=== PATIENT | male | born 1945 | race Caucasian/White ===

== ENCOUNTER 2021-08-14 00:21 | Emergency (ER) | payer MEDICARE, OTHER, SELFPAY ==
[2021-08-14 00:26] VITALS: BP 163/92; PULSE 86; RESP 19; TEMP 36.4; O2SAT 96; BMI 25.8
--- NOTE | 2021-08-14 00:46 | W.ED.EPISTAX ---
HPI - Epistaxis General: Chief complaint: Epistaxis Stated complaint: Nose Bleed Time Seen by Provider: 08/14/21 00:46 History of Present Illness: HPI Narrative: Patient is a 76-year-old male comes to the ED with a nosebleed. Patient says nosebleed started about 2-1/2 hours ago while he was in the shower. Patient says he was picking at his nose in the shower and then the bleeding started. Denies any injury or trauma to cause nosebleed. Patient is on a blood thinner. He is put pressure on his nose using his hand and has gotten the bleeding slowed down some but it has not completely stopped. He says that most of what he has been spitting up and has been draining out of his nose has been red blood just a few clots. Denies any other symptoms such as nausea/vomiting, chest pain, shortness of breath, abdominal pain, bladder or bowel symptoms. Associated symptoms: Deny fever(s), headache(s) or vomiting Review of Systems Const: Denies: fever(s), chills or fatigue Eyes: Denies: change in vision or eye discomfort ENMT: Reports: epistaxis; Denies: throat pain, odynophagia, nasal discharge or nasal congestion Card: Denies: chest pain, palpitations, edema, swelling of feet/ankles, dyspnea on exertion or orthopnea Resp: Denies: dyspnea, productive cough or non-productive cough GI: Denies: abdominal pain, nausea, vomiting, diarrhea, constipation or hematochezia : Denies: flank pain, difficulty urinating, dysuria or hematuria Musc: Denies: neck pain, back pain or extremity swelling Skin/Breast: Denies: rash or new lesions Neuro: Denies: headache(s), numbness in extremities or weakness in extremities PFS ED PFSH: Medical History ASHD (arteriosclerotic heart disease) Atrial fibrillation COPD (chronic obstructive pulmonary disease) Dyslipidemia HTN (hypertension) Myocardial infarction GUANAKO (obstructive sleep apnea) Surgical History S/P CABG (coronary artery bypass graft) Family History Mother Status cardiac pacemaker CAD (coronary artery disease) Father CAD (coronary artery disease) Grandfather CAD (coronary artery disease) PATERNAL Social History Smoking and tobacco status: former smoker Household members: spouse Marital status: Current occupational status: retired Physical Exam Const: COMMON NORMALS: no acute distress, patient oriented x3 and alert GENERAL APPEARANCE: cooperative and comfortable HENMT: COMMON NORMALS: normocephalic HEAD & SCALP: normocephalic NOSE: Normal septum present (No septal hematoma seen) and Epistaxis present on the right anterior source MOUTH: Normal oral and palatal mucosa present THROAT: posterior oropharynx normal and uvula midline OTHER: Some visible red blood seen dripping down the posterior oropharynx. Eye: COMMON NORMALS: Equal, round and reactive pupils present and conjunctivae normal CONJUNCTIVA: Yes conjunctivae normal PUPIL: Yes Equal, round and reactive pupils present Neck/C-Spine: COMMON NORMALS: supple GENERAL: Yes normal visual inspection Resp: COMMON NORMALS: normal respiratory effort, No retractions, No use of accessory muscles and clear to auscultation bilaterally AUSCULTATION: clear to auscultation bilaterally Cardio: COMMON NORMALS: regular rate, regular rhythm, S1 normal heart sound present, S2 normal heart sound present, No gallops present (Cardio), No clicks present (Cardio), No murmurs present (Cardio) and Peripheral pulses 2+ throughout RATE: regular rate RHYTHM: regular rhythm HEART SOUNDS: S1 normal heart sound present and S2 normal heart sound present PERIPHERAL PULSES: Peripheral pulses 2+ throughout GI: COMMON NORMALS: Normal to inspection, nondistended, normoactive bowel sounds present, Soft to palpation, non-tender and no masses PALPATION: Yes Soft to palpation : COMMON NORMALS: Yes no CVA tenderness BLADDER/KIDNEY EXAM: Yes no CVA tenderness Back/Pelvis: COMMON NORMALS: no CVA tenderness Extremity: COMMON NORMALS: normal to inspection Neuro: COMMON NORMALS: patient oriented x3 and moves all extremities SENSORIUM/ORIENTATION: Yes alert Skin: GENERAL SKIN EXAM: dry skin Course Reevaluation(s): Reevaluation #1: Nurse applied Afrin nasal spray in nose and then clamped for approximately 15 minutes. I then came in and checked to see if patient is having any bleeding. No visible bleeding in the posterior oropharynx and no active bleeding in the left or right nare seen. Patient feels like the bleeding has stopped. Time: 01:34 Reevaluation #2: I rechecked patient to see if he has any reoccurring bleeding and there is no active nasal bleeding or blood dripping down posterior oropharynx. Patient feels like the bleeding is stopped. I explained discharge instructions and how to treat any further nosebleeds. Time: 01:55 Vital Signs: Vital signs: Vital Signs Temperature 97.6 F 08/14/21 00:26 Pulse Rate 79 08/14/21 02:16 Respiratory Rate 18 08/14/21 02:16 Blood Pressure 139/85 08/14/21 02:16 Pulse Oximetry 98 08/14/21 02:16 MDM - Epistaxis MDM Narrative: Medical decision making narrative: Patient is a 76-year-old male comes to the ED with epistaxis. Patient is on a blood thinner. Denies any trauma or injury to cause nosebleed. Patient says he was in the shower picking at his nose when bleeding started. Exam showed an anterior source in the right nare. No septal hematoma noted. Some bleeding on the posterior oropharynx noted. Afrin was then sprayed him patient's nose and then clamp was applied for another 12 minutes. Bleeding stopped. Patient was on watch for another 30 minutes and had no recurring bleeding. Patient was discharged home and given instructions on how to treat any reoccurring nosebleeds. Return to ED precautions given. Follow-up with PCP in 7 days for reevaluation. Patient understood and agreed with plan. Discharge Plan Discharge Patient Disposition: Home Clinical Impression: Anterior epistaxis Condition: Stable Prescriptions: No Action tramadol 50 mg tablet 50 mg PO DAILY RF: 0 folic acid 1 mg tablet 1 mg PO DAILY RF: 0 pantoprazole 20 mg tablet,delayed release (DR/EC) 20 mg PO DAILY RF: 0 aspirin [Aspir-81] 81 mg tablet,delayed release (DR/EC) 81 mg PO DAILY RF: 0 trazodone 50 mg tablet 25 mg PO DAILY RF: 0 lisinopril 2.5 mg tablet 2.5 mg PO DAILY Qty: 90 RF: 3 rosuvastatin 40 mg tablet 40 mg PO DAILY Qty: 90 RF: 3 carvedilol 3.125 mg tablet See Rx Instructions .ROUTE .COMPLEX Qty: 180 RF: 3 clopidogrel 75 mg tablet 75 mg PO DAILY Qty: 90 RF: 3 Discharge Orders: Discharge ED (Routine); Ordered 08/14/21 Ordered By: Keaton Fallon Referrals: Phil Hernandez, DO [Primary Care Provider] - Discharge Diet: Regular Discharge Activity: Increase activity as tolerated Patient Instructions: Epistaxis (ED) Activity Restrictions/Additional Instructions: Follow-up with medical provider as directed in 7 days for reevaluation. Use Afrin nasal spray and clamp nose for approximately 15 minutes for any reoccurring nosebleeds. If you are unable to control nosebleed return to the ED for evaluation.. Return to the ER or your medical provider if condition worsens. Please read and understand discharge instructions. Thank you for choosing [facility] for your healthcare needs today. Please realize this is an emergency room and that we are providing you with a medical screening exam and this may not be complete and all inclusive of all the testing and or work up that you may need to determine your ailment or severity of your illness. It is very important that you follow up as instructed or that you return to the Emergency Department should you have concerns or if your condition changes or worsens in any way. Coding Level of Care Code ED Machine Riveter for [place] Exam Comprehensive
[2021-08-14 00:51] VITALS: BP 141/89; PULSE 84; RESP 19; O2SAT 95
[2021-08-14] MEDS: oxymetazoline 0.05% Nasal Spray 15 mL 2 SPRAY NOSTRIL-B (01:14)
[2021-08-14 02:16] VITALS: BP 139/85; PULSE 79; RESP 18; O2SAT 98
== END 2021-08-14 02:10 | disposition home or self-care (01) ==
PROVIDERS: Emergency Provider Physician Assistant; PCP Family Medicine
DX: R04.0 Epistaxis (principal); Z79.82 Long term (current) use of aspirin; Z79.02 Long term (current) use of antithrombotics/antiplatelets; J44.9 Chronic obstructive pulmonary disease, unspecified; E78.5 Hyperlipidemia, unspecified; I10 Essential (primary) hypertension; I25.2 Old myocardial infarction; Z87.891 Personal history of nicotine dependence; Z95.1 Presence of aortocoronary bypass graft
CPT/HCPCS: 99282

== ENCOUNTER 2021-12-03 09:10 | Outpatient (CLI) | payer MEDICARE, OTHER, SELFPAY ==
--- NOTE | 2021-12-03 09:24 | XRR_ITS ---
PROCEDURE INFORMATION: Exam: XR Left Shoulder Exam date and time: 12/03/2021 9:24 AM Age: 76 years old Clinical indication: Pain and condition or disease; Arthritis; Type not specified; Shoulder; Left; Additional info: Arthritis/l shoulder pain TECHNIQUE: Imaging protocol: XR Left shoulder. Views: 2 or more views. COMPARISON: No relevant prior studies available. FINDINGS: Bones/joints: Osseous structures are intact. Joint spaces are preserved. Soft tissues: Normal. XR/XR shoulder LT min 2V* [id number] IMPRESSION: Unremarkable radiographs of the left shoulder.
== END 2021-12-03 09:11 | disposition home or self-care (01) ==
LOC: RAD 09:21
PROVIDERS: PCP Family Medicine; Visit Provider Family Medicine
DX: M19.90 Unspecified osteoarthritis, unspecified site (principal); M25.512 Pain in left shoulder
CPT/HCPCS: 73030

== ENCOUNTER 2022-02-13 15:57 | Observation (INO) | payer MEDICARE, OTHER, SELFPAY ==
[2022-02-13] VITALS (8 sets, daily range): BP systolic 107–140; BP diastolic 67–95; PULSE 54–143; RESP 12–20; TEMP 36.7; O2SAT 92–95; BMI 23.0; BMI 23.1
--- NOTE | 2022-02-13 16:27 | ED_ITS ---
Documented by User: Jose Ross 02/13/22 18:00 HPI - Chest Pain General: Chief Complaint: Chest Pain Stated Complaint: chest pain Time Seen by Provider: 02/13/22 16:22 History of Present Illness: 76-year-old male presents to emergency department chief complaint palpitations with elevated heart rate and chest tightness that started within the past 2 hours. Patient reports having a known history of this in the past including atrial fibrillation open heart bypass with cardiac stenting about 25 years ago in which he is required medications for. Patient reports no recent infections or illnesses besides a mild respiratory issue reports no bronchitis or pneumonia. Patient is on Plavix. Patient does not recall any recent medication changes or any other associated symptoms. Associated symptoms: Reports palpitations; Deny abdominal pain, dyspnea, fever(s), nausea or vomiting Review of Systems General: Reports: 10 or more systems reviewed and unremarkable except in HPI and below Const: Denies: fever(s), chills, fatigue or malaise Eyes: Denies: change in vision or blurry vision Card: Reports: chest pain and palpitations Resp: Denies: dyspnea or productive cough GI: Denies: abdominal pain, nausea or vomiting : Denies: flank pain Musc: Denies: extremity pain or extremity swelling Skin/Breast: Denies: rash or pruritus Neuro: Denies: headache(s) Psych: Denies: anxiety or depression Dev/Lymph: Denies: easy bleeding All/Imm: Denies: urticaria, throat swelling or facial swelling PFS ED PFSH: Medical History (Updated 02/13/22 @ 20:01 by Derik Adhikari MD) ASHD (arteriosclerotic heart disease) Atrial fibrillation COPD (chronic obstructive pulmonary disease) DJD (degenerative joint disease), lumbar Dyslipidemia HTN (hypertension) Myocardial infarction GUANAKO (obstructive sleep apnea) Surgical History (Updated 02/13/22 @ 20:01 by Derik Adhikari MD) H/O hernia repair S/P CABG (coronary artery bypass graft) Family History Mother Status cardiac pacemaker CAD (coronary artery disease) Father CAD (coronary artery disease) Grandfather CAD (coronary artery disease) PATERNAL Social History (Updated 02/13/22 @ 20:02 by Derik Adhikari MD) Smoking and tobacco status: former smoker Alcohol intake: current Alcohol intake frequency: few times a week Substance/Drug Use: never Household members: spouse Marital status: Current occupational status: retired Physical Exam Const: COMMON NORMALS: no acute distress, patient oriented x3 and healthy appearing HENMT: COMMON NORMALS: normocephalic and atraumatic HEAD & SCALP: normocephalic and atraumatic Eye: COMMON NORMALS: Equal, round and reactive pupils present and EOMs intact bilaterally PUPIL: Yes Equal, round and reactive pupils present Neck/C-Spine: COMMON NORMALS: full ROM, supple and no JVD Lymph: LYMPHATIC: no lymphadenopathy noted Chest: COMMONS NORMALS: normal inspection of the chest and normal palpation of entire chest wall Resp: COMMON NORMALS: normal respiratory effort, No retractions and clear to auscultation bilaterally EFFORT & INSPECTION: Yes able to speak in complete sentences and Yes symmetric chest movement AUSCULTATION: clear to auscultation bilaterally Cardio: COMMON NORMALS: no JVD; negative for regular rate (Patient is was appear to be a tachycardic rhythm rate of 144 appears to be ) RATE: abnormal rate (Patient is was appear to be a tachycardic rhythm rate of 144 appears to be ) GI: COMMON NORMALS: Normal to inspection, nondistended, normoactive bowel sounds present, Soft to palpation and non-tender INSPECTION: Yes normal to inspection PALPATION: Yes Soft to palpation : COMMON NORMALS: Yes no CVA tenderness BLADDER/KIDNEY EXAM: Yes no CVA tenderness Back/Pelvis: COMMON NORMALS: no CVA tenderness Extremity: COMMON NORMALS: normal to inspection and full ROM Neuro: COMMON NORMALS: patient oriented x3, CN's II-XII intact bilaterally, moves all extremities and no focal motor deficits Psych: COMMON NORMALS: mental status grossly normal, Normal thought process present, cooperative and normal affect THOUGHT PROCESS: Normal thought process present Skin: COMMON NORMALS: no rashes or lesions noted GENERAL SKIN EXAM: no rashes or lesions noted Course Vital Signs: Vital signs: Vital Signs Temperature 97.8 F 02/14/22 07:09 Pulse Rate 67 02/14/22 07:09 Respiratory Rate 21 H 02/14/22 07:09 Blood Pressure 106/74 02/14/22 07:09 Pulse Oximetry 92 02/14/22 07:09 MDM - Chest Pain Medical Decision Making Due to the patient's symptoms and condition lab work and imaging will be obtained IV fluids provided Cardizem bolus followed by drip will be obtained if slow this. His rate down he does not appear to be a STEMI at this time but there is some ischemic changes noted to his EKG in comparison to prior which I believe is rate dependent we will continue to follow. Lab Data : 02/14/22 05:00 02/14/22 05:00 Radiology Impressions Chest X-Ray 02/13/22 16:30 IMPRESSION: No acute findings. Laboratory Results WBC 6.9 10^3/uL (4.0-10.0) 02/13/22 16:35 RBC 5.11 10^6/uL (4.1-5.3) 02/13/22 16:35 Hgb 16.2 g/dL (11.7-16.6) 02/13/22 16:35 Hct 46.6 % (42.0-52.0) 02/13/22 16:35 MCV 91.2 fl (80-94) 02/13/22 16:35 MCH 31.7 pg (28.0-34.0) 02/13/22 16:35 MCHC 34.8 g/dL (30.0-36.0) 02/13/22 16:35 RDW 13.2 % (12.1-15.1) 02/13/22 16:35 Plt Count 201 10^3/cmm (130-400) 02/13/22 16:35 MPV 10.6 fL (7.4-10.4) H 02/13/22 16:35 Neut % (Auto) 80.9 % 02/13/22 16:35 Lymph % (Auto) 12.3 % 02/13/22 16:35 [place] % (Auto) 4.8 % 02/13/22 16:35 Eos % (Auto) 1.3 % 02/13/22 16:35 Baso % (Auto) 0.6 % 02/13/22 16:35 Neut # (Auto) 5.54 10^3/uL (1.8-7.7) 02/13/22 16:35 Lymph # (Auto) 0.8 10^3/uL (0.8-4.8) 02/13/22 16:35 [place] # (Auto) 0.3 10^3/uL (0.2-0.9) 02/13/22 16:35 Eos # (Auto) 0.1 10^3/uL (0.0-0.8) 02/13/22 16:35 Baso # (Auto) 0.0 10^3/uL (0.0-0.1) 02/13/22 16:35 Nucleated RBC % (auto) 0 % 02/13/22 16:35 Nucleated RBCs # 0.0 /100WBC 02/13/22 16:35 PT 12.90 SECONDS (12.1-14.9) 02/13/22 16:35 INR 0.94 (0.8-1.2) 02/13/22 16:35 APTT 25.8 SECONDS (23.9-36.7) 02/13/22 16:35 Sodium 140 mmol/L (136-145) 02/13/22 16:35 Potassium 4.7 mmol/L (3.5-5.1) 02/13/22 16:35 Chloride 104 mmol/L (98-107) 02/13/22 16:35 Carbon Dioxide 24 mmol/L (22-29) 02/13/22 16:35 Anion Gap 16.7 (5-19) 02/13/22 16:35 BUN 15 mg/dL (8-23) 02/13/22 16:35 Creatinine 0.7 mg/dL (0.7-1.2) 02/13/22 16:35 GFR Calculation Not Reportable 02/13/22 16:35 Glucose 124 mg/dL (65-115) H 02/13/22 16:35 Calculated Osmolality 292 mOsm/kg (285-295) 02/13/22 16:35 Calcium 9.5 mg/dL (8.5-10.5) 02/13/22 16:35 Magnesium 2.0 mg/dL (1.7-2.3) 02/13/22 16:35 Total Bilirubin 0.4 mg/dL (0.15-1.2) 02/13/22 16:35 AST 32 U/L (0-40) 02/13/22 16:35 ALT 40 U/L (0-41) 02/13/22 16:35 Alkaline Phosphatase 84 IU/L (40-130) 02/13/22 16:35 Troponin T Baseline 12 ng/L (0-15) 02/13/22 16:35 Troponin T 120 Minute 19.97 ng/L (0-15) H 02/13/22 18:25 Delta Troponin T 7.97 ABS# (0-10) 02/13/22 18:25 NT-Pro-B Natriuret Pep 176 pg/mL (0-450) 02/13/22 16:35 Total Protein 7.2 g/dL (6.6-8.7) 02/13/22 16:35 Albumin 4.6 g/dL (3.5-5.2) 02/13/22 16:35 Globulin 2.6 g/dL (1.3-4.6) 02/13/22 16:35 Lipase 41 U/L (13-60) 02/13/22 16:35 TSH 1.74 uIU/mL (0.27-4.20) 02/13/22 16:35 Urine Color Yellow (Yellow) 02/13/22 18:23 Urine Appearance Clear (CLEAR) 02/13/22 18:23 Urine pH 5 (5-7) 02/13/22 18:23 Ur Specific [place] 1.007 (1.005-1.030) 02/13/22 18:23 Urine Protein Neg (Negative) 02/13/22 18:23 Urine Glucose (UA) Norm (Normal) 02/13/22 18:23 Urine Ketones Negative (Negative) 02/13/22 18:23 Urine Blood Neg (Negative) 02/13/22 18:23 Urine Nitrate Negative (Negative) 02/13/22 18:23 Urine Bilirubin Neg (Negative) 02/13/22 18:23 Urine Urobilinogen Neg mg/dL (Negative) 02/13/22 18:23 Ur Leukocyte Esterase Negative (Negative) 02/13/22 18:23 Discharge Plan Discharge Patient Disposition: Admitted As Inpatient Admit Provider: Derik Adhikari Clinical Impression: Chest pain, Atrial fibrillation with rapid ventricular response Condition: Stable Discharge Diet: Cardiac Discharge Activity: Increase activity as tolerated Sign Out Sign Out Data: Patient Sign Out occurred on 02/13/22 at 18:14. Patient's care was discussed, and care was transferred from to Joel Denis MD. Post-Handoff Eval: Patient care handoff received from Dr. Ross pending completion of ED evaluation and admission. No obvious metabolic or hematologic abnormalities to explain recurrent atrial fibrillation. Delta troponin is elevated, in the absence of chest pain this may be due to demand ischemia. I discussed the results of ED evaluation with the patient. He did have improvement in her rate control with Cardizem bolus and drip. I discussed plan to admit the patient to the hospital for further treatment and management. Hospitalist service contacted and agreed with the patient. Patient admitted to the hospital without incident or clinical deterioration. Joel Denis MD Emergency Medicine Coding Level of Care Code ED Civil Project Engineer for Chg Fwd Exam Comprehensive
--- NOTE | 2022-02-13 16:30 | XRR_ITS ---
PROCEDURE INFORMATION: Exam: XR Chest Exam date and time: 02/13/2022 3:39 PM Age: 76 years old Clinical indication: Other: Palpitations TECHNIQUE: Imaging protocol: XR of the chest. Views: 1 view. COMPARISON: CR XR shoulder LT min 2V* [id number] 12/03/2021 9:28 AM FINDINGS: Lungs: No consolidation. Pleural spaces: No pleural effusion. No pneumothorax. Heart/Mediastinum: No cardiomegaly. Bones/joints: Sternotomy wires noted. Visualized osseous structures are intact. XR/XR chest 1V portable [id number] IMPRESSION: No acute findings.
--- NOTE | 2022-02-13 16:30 | ECG_ITS ---
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 Measurements Intervals [place] Rate: 144 P: 267 VT: 124 QRS: 254 QRSD: 148 T: 0 QT: 321 QTc: 498 Interpretive Statements JUNCTIONAL TACHYCARDIA, POSSIBLE ATRIAL FLUTTER RIGHT AXIS DEVIATION [QRS AXIS > 100] RIGHT BUNDLE BRANCH BLOCK [120+ ms QRS DURATION, UPRIGHT V1, 40+ ms S IN I/aVL/V4/V5/V6] INFERIOR MYOCARDIAL INFARCTION , PROBABLY RECENT [40+ ms Q WAVE AND/OR ST/T ABNORMALITY IN II/aVF] ANTEROLATERAL MYOCARDIAL INFARCTION , OF INDETERMINATE AGE [40+ ms Q WAVE IN I/aVL/V3-V6] ACUTE [place] No previous ECG available for comparison Electronically Signed On 02-13-2022 21:52:19 CDT by Juan Daniel Moreira M.D. [id number]
--- NOTE | 2022-02-13 16:36 | PC.NURSE ---
PT PLACED ON CONTINUOUS SPO2, NIBP, AND CM.
[2022-02-13] MEDS: sodium chloride 0.9% 500 ML 999 ML IV (16:39)
[2022-02-13 16:56] LABS: Basophils % 0.6 %; Eosinophils # 0.1 10^3/uL (0.0-0.8); Eosinophils % 1.3 %; Hematocrit 46.6 % (42.0-52.0); Hemoglobin 16.2 g/dL (11.7-16.6); INR 0.94 (0.8-1.2); Lymphocytes # 0.8 10^3/uL (0.8-4.8); Lymphocytes % 12.3 %; Mean Corpuscular HGB Conc 34.8 g/dL (30.0-36.0); Mean Corpuscular Hemoglobin 31.7 pg (28.0-34.0); Mean Corpuscular Volume 91.2 fl (80-94); Mean Platelet Volume 10.6 fL (7.4-10.4); Monocytes # 0.3 10^3/uL (0.2-0.9); Monocytes % 4.8 %; Neutrophils # 5.54 10^3/uL (1.8-7.7); Neutrophils % 80.9 %; Nucleated Red Blood Cells % 0 %; Platelet Count 201 10^3/cmm (130-400); Red Blood Count 5.11 10^6/uL (4.1-5.3); Red Cell Distribution Width 13.2 % (12.1-15.1); White Blood Count 6.9 10^3/uL (4.0-10.0)
[2022-02-13 16:57] LABS: Partial Thromboplastin Time 25.8 SECONDS (23.9-36.7)
[2022-02-13 17:15] LABS: Alanine Aminotransferase 40 U/L (0-41); Albumin Level 4.6 g/dL (3.5-5.2); Alkaline Phosphatase 84 IU/L (40-130); Anion Gap 16.7 (5-19); Aspartate Amino Transferase 32 U/L (0-40); Blood Urea Nitrogen 15 mg/dL (8-23); Calcium 9.5 mg/dL (8.5-10.5); Carbon Dioxide 24 mmol/L (22-29); Chloride 104 mmol/L (98-107); Globulin 2.6 g/dL (1.3-4.6); Glucose 124 mg/dL (65-115); Lipase 41 U/L (13-60); Osmolality Calculated 292 mOsm/kg (285-295); Potassium 4.7 mmol/L (3.5-5.1); Sodium 140 mmol/L (136-145); Total Bilirubin 0.4 mg/dL (0.15-1.2); Total Protein 7.2 g/dL (6.6-8.7)
[2022-02-13 17:18] LABS: Troponin(5th) Baseline 12 ng/L (0-15)
--- NOTE | 2022-02-13 18:30 | ECG_ITS ---
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 Measurements Intervals [place] Rate: 76 P: [place]: QRS: 243 QRSD: 134 T: 35 QT: 401 QTc: 452 Interpretive Statements ATRIAL FIBRILLATION WITH ABERRANT CONDUCTION OR VENTRICULAR PREMATURE COMPLEXES RIGHT AXIS DEVIATION [QRS AXIS > 100] RIGHT BUNDLE BRANCH BLOCK [120+ ms QRS DURATION, UPRIGHT V1, 40+ ms S IN I/aVL/V4/V5/V6] INFERIOR MYOCARDIAL INFARCTION , PROBABLY OLD [40+ ms Q WAVE AND/OR ST/T ABNORMALITY IN II/aVF] ANTEROLATERAL MYOCARDIAL INFARCTION , PROBABLY OLD [40+ ms Q WAVE IN I/aVL/V3-V6] Compared to ECG 02/13/2022 16:11:57 Ventricular premature complex(es) now present Aberrant conduction of supraventricular beat(s) now present Myocardial infarct finding still present Electronically Signed On 02-13-2022 22:09:47 CDT by Juan Daniel Moreira M.D. [id number]
[2022-02-13 18:35] LABS: Add Urine Microscopic? NO; Charge for UA Resulting for Rev
[2022-02-13 18:41] LABS: NT Pro B Type Natriuretic Pept 176 pg/mL (0-450)
[2022-02-13 18:59] LABS: Troponin 5 2HR 19.97 ng/L (0-15)
[2022-02-13 19:02] LABS: Troponin 5 2HR Delta 7.97 ABS# (0-10)
--- NOTE | 2022-02-13 19:03 | PC.NURSE ---
report given to catherine rn assumed care.
[2022-02-13 19:06] LABS: Bilirubin Urine Neg (Negative); Blood Urine Neg (Negative); Glucose Urine UA Norm (Normal); Ketones Urine Negative (Negative); Leukocyte Esterase Urine Negative (Negative); Nitrate Urine Negative (Negative); Protein Urine Neg (Negative); Specific Gravity, Urine 1.007 (1.005-1.030); Urine Appearance Clear (CLEAR); Urine Color Yellow (Yellow); Urobilinogen Urine Neg (Negative); pH Urine 5 (5-7)
--- NOTE | 2022-02-13 19:23 | PC.NURSE ---
cardizem running at 10ml/hr at shift change, MAR updated to reflect this rate.
--- NOTE | 2022-02-13 19:53 | PM.HP ---
Providers/Chief Complaint Admitting Physician: Derik Adhikari Primary Care Provider: Phil Hernandez DO Chief Complaint: chest pain History of Present Illness Pleasant 76-year-old gentleman with history of CAD, CABG, PCI and stenting, as well as history of atrial fibrillation presented due to chest pressure and palpitations experienced this afternoon after earlier doing some work in the yard, and then walking to the mailbox. His reports he felt hot at the time. In ER he is noted to be in atrial fibrillation with RVR with heart rates up into 140s. He received Cardizem push, and then was started on Cardizem drip due to persistent A. fib with RVR. He is afebrile, without leukocytosis, although does state he and his had been recovering from cold-like symptoms a week previously with sneezing, nasal congestion, with some postnasal drip and cough. Chest x-ray in ER without acute findings. UA unremarkable. Potassium and renal function are WNL. Baseline troponin is 12, 2-hour troponin 19.9 7. EKG with right bundle branch block. Apart from these events he states he otherwise has been in good health. Review of Systems Const: Denies: fever(s), chills, body aches or malaise Eyes: Denies: change in vision or eye redness ENMT: Reports: nasal discharge and nasal congestion; Denies: throat pain, oral sores or ear or mastoid pain Card: Reports: chest pain and palpitations; Denies: edema, pre-syncope or dyspnea on exertion Resp: Denies: dyspnea, productive cough, change in phlegm color or hemoptysis GI: Denies: abdominal pain, nausea, vomiting, diarrhea, constipation, hematochezia or melena : Denies: flank pain, difficulty urinating, urinary frequency or hematuria Musc: Denies: back pain, joint swelling or joint redness Skin/Breast: Denies: rash, sores or new lesions Neuro: Denies: headache(s), numbness in extremities, weakness in extremities, dizziness, confusion or seizure-like activity Endo: Denies: polyuria or polydipsia Dev/Lymph: Denies: easy bleeding or purpura All/Imm: Denies: urticaria, throat swelling or tongue swelling Medications/Allergies Home Medications Medication Instructions Recorded Confirmed Last Taken Type aspirin 81 mg tablet,delayed 81 mg PO DAILY 03/26/20 07/13/20 Unknown History release (Aspir-) folic acid 1 mg tablet 1 mg PO DAILY 03/26/20 07/13/20 Unknown History pantoprazole 20 mg tablet,delayed 20 mg PO DAILY 03/26/20 07/13/20 Unknown History release trazodone 50 mg tablet 25 mg PO DAILY 03/26/20 07/13/20 Unknown History lisinopril 2.5 mg tablet 2.5 mg PO DAILY #90 tab 07/10/20 07/13/20 Unknown Rx rosuvastatin 40 mg tablet 40 mg PO DAILY #90 tab 07/13/20 Unknown Rx tramadol 50 mg tablet 50 mg PO DAILY 07/13/20 07/13/20 Unknown History carvedilol 3.125 mg tablet See Rx Instructions .ROUTE 10/23/20 Unknown Rx .COMPLEX #180 tab clopidogrel 75 mg tablet 75 mg PO DAILY #90 tab 11/28/20 Unknown Rx Allergies Allergy/AdvReac Type Severity Reaction Status Date / Time No Known Allergies Allergy Verified 03/26/20 15:12 PFSH Acute PFSH: Medical History (Updated 02/13/22 @ 20:01 by Derik Adhikari MD) ASHD (arteriosclerotic heart disease) Atrial fibrillation COPD (chronic obstructive pulmonary disease) DJD (degenerative joint disease), lumbar Dyslipidemia HTN (hypertension) Myocardial infarction GUANAKO (obstructive sleep apnea) Surgical History (Updated 02/13/22 @ 20:01 by Derik Adhikari MD) H/O hernia repair S/P CABG (coronary artery bypass graft) Family History Mother Status cardiac pacemaker CAD (coronary artery disease) Father CAD (coronary artery disease) Grandfather CAD (coronary artery disease) PATERNAL Social History (Updated 02/13/22 @ 20:02 by Derik Adhikari MD) Smoking and tobacco status: former smoker Alcohol intake: current Alcohol intake frequency: few times a week Substance/Drug Use: never Household members: spouse Marital status: Current occupational status: retired Vitals/I&O/Wt Last Vital Signs Temp 98.0 F 02/13/22 16:12 Pulse 113 H 03/17/22 19:38 Resp 15 02/13/22 19:38 BP 114/67 02/13/22 19:38 Pulse Ox 94 02/13/22 19:38 02/13/22 02/13/22 02/13/22 06:59 14:59 22:59 Intake Total 12.016 / 12.016 Balance 12.016 / 12.016 Weight last 48 hrs Weight 77.111 kg Physical Exam Narrative: at bedside Const: COMMON NORMALS: no acute distress and patient oriented x3 OTHER: [place] HENMT: COMMON NORMALS: oropharynx normal Neck/C-Spine: COMMON NORMALS: no JVD Resp: COMMON NORMALS: normal respiratory effort and clear to auscultation bilaterally AUSCULTATION: clear to auscultation bilaterally Cardio: COMMON NORMALS: no JVD, S1 normal heart sound present, S2 normal heart sound present and No murmurs present (Cardio) RATE: tachycardic RHYTHM: abnormal rhythm irregularly irregular HEART SOUNDS: S1 normal heart sound present and S2 normal heart sound present GI: COMMON NORMALS: Normal to inspection, nondistended, normoactive bowel sounds present, Soft to palpation and non-tender PALPATION: Yes Soft to palpation Extremity: COMMON NORMALS: no joint enlargement and no pedal edema Neuro: COMMON NORMALS: patient oriented x3 and moves all extremities Skin: COMMON NORMALS: no rashes or lesions noted GENERAL SKIN EXAM: no rashes or lesions noted Data : 02/13/22 16:35 02/13/22 16:35 A&P Assessment and plan (1) Atrial fibrillation with rapid ventricular response: Continue Cardizem drip. Discussed with him we will switch from carvedilol to metoprolol p.o. Start metoprolol p.o. 25 mg twice daily starting tonight. May need to uptitrate dose to help wean off Cardizem drip. Telemetry monitoring. Continue management on CSU. Discussed with him risk of CVA, discussion with him and his they would like to pursue risk reduction of CVA with anticoagulation. Discussed would not continue triple therapy, continue Plavix plus anticoagulant. Start Lovenox for now, transition to oral anticoagulant prior to discharge. Status: Acute (2) Chest pain: With palpitations, suspect secondary to atrial fibrillation with RVR. Possibly some component of demand ischemia, mild troponin rise is noted. Complete troponin EKG series. Assess TTE. Does have history of coronary disease, depending on further studies, consider whether he needs additional assessment by stress testing once rate is controlled. Status: Acute (3) Palpitations: As above. Status: Acute Plan Recent cold-like symptoms: Reports he is recovering from a cold which she had a week ago with nasal congestion, drip, postnasal drip, sneezing, some cough. No pneumonia on chest x-ray. Oxygenating well. Currently fever, chills, no shortness of breath, cough, headache, nausea, vomiting or diarrhea. Monitor for changes in symptoms. CAD: History of CABG, PCI and stents HTN HLD COPD, not in exacerbation GUANAKO Other medical problems noted. Attestations Medical Necessity Statement*: Place in observation for control of A. fib with RVR and additional assessment of chest pain in a gentleman with underlying CAD. Coding Level of Care Code Acute [facility] Diagnoses Atrial fibrillation with rapid ventricular response I48.91 Chest pain R07.9 Palpitations R00.2
--- NOTE | 2022-02-13 20:20 | PC.NURSE ---
Admit Note Patient admitted to CSU from ED via stretcher. Patient able to ambulate to bed without difficulty, increased sob but did have increase in heart rate with exertion. Patient on Cardizem drip at 10ml/hr. Increased Cardizem to 15ml/hr on admission. Covering service notified. Patient presents with afib with RVR. Patient denies pain or discomforts on admission. Orders reviewed & will continue to monitor. Patient and/or event representative oriented to environment, equipment, and informed of the following as found in the admission booklet: patient rights & responsibilities, visitor policy, hand and respiratory hygiene practice. Other education includes: cardizem and metoprolol. Patient verbalized complete understanding.
[2022-02-13 20:44] LABS: Thyroid Stimulating Hormone 1.74 uIU/mL (0.27-4.20)
[2022-02-13] MEDS: enoxaparin 80 mg/0.8 mL Syringe SUBCUT (21:03)
[2022-02-13] MEDS: metoprolol tartrate 25 mg Tablet PO (21:03)
--- NOTE | 2022-02-13 22:30 | ECG_ITS ---
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 Measurements Intervals [place]pie Rate: 63 P: 66 DC: 167 QRS: -89 QRSD: 141 T: 90 QT: 411 QTc: 423 Interpretive Statements SINUS RHYTHM RIGHT BUNDLE BRANCH BLOCK [120+ ms QRS DURATION, UPRIGHT V1, 40+ ms S IN I/aVL/V4/V5/V6] INFERIOR MYOCARDIAL INFARCTION , PROBABLY OLD [40+ ms Q WAVE AND/OR ST/T ABNORMALITY IN II/aVF] Compared to ECG 02/13/2022 16:41:18 Atrial fibrillation no longer present Ventricular premature complex(es) no longer present Aberrant conduction of supraventricular beat(s) no longer present Right-axis deviation no longer present Myocardial infarct finding still present Electronically Signed On 02-14-2022 20:12:46 CDT by Wallace Avila M.D. [id number]
[2022-02-13 22:31] LABS: Troponin 5 6HR 25.41 ng/L (0-15)
[2022-02-13 22:32] LABS: Troponin 5 6HR Delta 13.41 ng/L (0-12)
--- NOTE | 2022-02-13 23:46 | PC.NURSE ---
Patient's heart rate decreasing into the 50s. Informed Dr Adhikari and received telephone order to hold the cardizem drip for now.
[2022-02-14 02:03] VITALS: PULSE 55; RESP 14; O2SAT 93
--- NOTE | 2022-02-14 02:07 | PC.NURSE ---
Patient converted to NSR at ~0137. Dr Adhikari notified. Strip posted.
[2022-02-14 04:00] VITALS: BP 103/63; PULSE 63; RESP 17
[2022-02-14 04:38] VITALS: PULSE 62
[2022-02-14 05:42] LABS: Basophils % 0.4 %; Eosinophils # 0.1 10^3/uL (0.0-0.8); Eosinophils % 1.5 %; Hematocrit 43.1 % (42.0-52.0); Hemoglobin 14.3 g/dL (11.7-16.6); Lymphocytes # 1.8 10^3/uL (0.8-4.8); Lymphocytes % 22.5 %; Mean Corpuscular HGB Conc 33.2 g/dL (30.0-36.0); Mean Corpuscular Hemoglobin 30.3 pg (28.0-34.0); Mean Corpuscular Volume 91.3 fl (80-94); Mean Platelet Volume 10.9 fL (7.4-10.4); Monocytes # 0.8 10^3/uL (0.2-0.9); Monocytes % 9.5 %; Neutrophils # 5.19 10^3/uL (1.8-7.7); Neutrophils % 65.8 %; Nucleated Red Blood Cells % 0 %; Platelet Count 189 10^3/cmm (130-400); Red Blood Count 4.72 10^6/uL (4.1-5.3); Red Cell Distribution Width 13.2 % (12.1-15.1); White Blood Count 7.9 10^3/uL (4.0-10.0)
[2022-02-14 06:02] LABS: Anion Gap 14.1 (5-19); Blood Urea Nitrogen 15 mg/dL (8-23); Calcium 8.9 mg/dL (8.5-10.5); Carbon Dioxide 24 mmol/L (22-29); Chloride 105 mmol/L (98-107); Glucose 94 mg/dL (65-115); Osmolality Calculated 289 mOsm/kg (285-295); Potassium 4.1 mmol/L (3.5-5.1); Sodium 139 mmol/L (136-145)
--- NOTE | 2022-02-14 06:19 | PC.NURSE ---
Patient continues with NSR/SB with heart rate mid 50s to mid 60s at this time. No increase in heart rate with exertion. Denies pain or needs. Instructed patient on Lovenox and possible discharge with oral blood thinners for recurring afib. Patient verbalized complete understanding. Frequent rounding through the night. No distress observed. Will continue to monitor.
--- NOTE | 2022-02-14 06:21 | PC.NURSE ---
This RN agrees with all documentation entered by SN. Cherrie
[2022-02-14 07:09] VITALS: BP 106/74; PULSE 67; RESP 21; TEMP 36.6; O2SAT 92
--- NOTE | 2022-02-14 08:00 | USCV_ITS ---
Transthoracic Echo Josiah Gutierres Age: 76 Gender: M : 1945 Exam Date: 02/14/2022 00:29 Ordering Phys: Derik Adhikari MD Technologist: Sahil Mckeon Exam Location: [facility] [place] Indication: AFib w RVR and Chest Pain BP: / HR: 73 Rhythm: Atrial fibrillation Technical Quality: Adequate MEASUREMENTS (Male / Female) Normal Values 2D ECHO LV Diastolic Diameter PLAX 5.0 cm 4.2 - 5.9 / 3.9 - 5.3 cm LV Systolic Diameter PLAX 3.8 cm IVS Diastolic Thickness 1.5 cm 0.6 - 1.0 / 0.6 - 0.9 cm IVS Systolic Thickness 1.9 cm LVPW Diastolic Thickness 1.1 cm 0.6 - 1.0 / 0.6 - 0.9 cm LVPW Systolic Thickness 1.4 cm LVOT Diameter 1.7 cm LV Ejection Fraction 2D Teich 48.6 % LV Ejection Fraction MOD 2C 4.7 % LV Ejection Fraction 2C AL 4.9 % LA Diameter 3.7 cm LA Width 4.1 cm LA Height 6.2 cm RA Width 2.8 cm RA Height 3.9 cm Aorta at Sinotubular Diameter 2.4 cm M-MODE Aortic Annulus Diameter 3.0 cm LA Ao Ratio MM 1.3 MV E Point Septal Separation 0.7 cm DOPPLER AV Peak Velocity 103.3 cm/s LVOT Peak Velocity 90.0 cm/s AV Area Cont Eq vti 2.1 cm squared AV Area Cont Eq pk 2.0 cm squared MV Area PHT 4.3 cm squared MV E' Velocity 93.0 cm/s TR Peak Velocity 255.0 cm/s TR Peak Gradient 26.0 mmHg TR Mean Velocity 185.7 cm/s TR Mean Gradient 15.5 mmHg TR Velocity Time Integral 65.9 cm Right Atrial Pressure 3.0 mmHg Pulmonary Artery Systolic Pressu 29.0 mmHg PV Peak Velocity 82.0 cm/s RV Acceleration Time 0.1 s RV Ejection Time 0.3 s RV AcT/ET 0.4 FINDINGS Left Ventricle Normal left ventricular size. LV systolic function is mildly reduced with EF of 40-45%. Moderate hypokinesis of inferolateral and inferior nuñez. Diastolic function is indeterminate because of atrial fibrillation. Right Ventricle The right ventricle is normal in size and function. Right Atrium The right atrium is normal in size. Left Atrium The left atrium is normal in size. Mitral Valve Structurally normal mitral valve without significant stenosis or prolapse. There is mild mitral regurgitation. Aortic Valve Aortic valve is thickened without significant stenosis. There is no aortic regurgitation. Tricuspid Valve Structurally normal tricuspid valve without significant stenosis. Mild tricuspid regurgitation. Pulmonary artery systolic pressure is normal. Pulmonic Valve Structurally normal pulmonic valve without significant stenosis. There is mild pulmonic regurgitation. Pericardium Normal pericardium without effusion. Aorta Normal ascending aorta dimension. CONCLUSIONS LV systolic function is mildly reduced with EF of 40-45%. Moderate hypokinesis of inferolateral and inferior wall. Diastolic function is indeterminate because of atrial fibrillation Mild mitral regurgitation Mild tricuspid regurgitation Mild pulmonary regurgitation Wallace Avila MD (Electronically Signed) Final Date: 14 February 2022 15:55 S
--- NOTE | 2022-02-14 09:11 | PM.DCS ---
Discharge Providers Date of Admission: 02/13/22 19:18 Date of Discharge: February 14, 2022 Attending Provider at Admission: Derik Adhikari Attending Provider at Discharge: Grodon Agosto Primary Care Provider: Phil Hernandez DO Diagnoses at Discharge Discharge Diagnosis (1) Atrial fibrillation with rapid ventricular response: Details from hospital stay: Converted back to NSR Status: Acute (2) Chest pain: Details from hospital stay: Resolved Status: Acute (3) Palpitations: Details from hospital stay: Resolved Status: Acute Reason for Visit Reason for Visit: chest pain Hospital Course Hospital Course Patient was admitted for atrial fibrillation with rapid rate ventricular response. Per ED report patient was experiencing chest pain however patient denied this to me. Patient quickly reverted back to normal sinus rhythm. A Cardizem drip was started and then discontinued throughout the night. Patient was changed from Coreg to metoprolol. I presume this was for better control of atrial fibrillation as well as history of PVCs. Patient reports this is his fourth episode of atrial fibrillation. The admitting physician talked to the patient and his and they are agreeable to starting full dose anticoagulation to prevent cardiac thrombus and stroke prevention. Eliquis 5 mg twice daily is started on this admission. Will stop Plavix at this time may continue aspirin. Anticoagulation instructions given to patient at discharge. I advised patient to follow-up with Dr. Avila his established zoology technical officer. He was discharged from follow-up with cardiology for CAD but now this is a new diagnosis of atrial fibrillation. I do recommend the transthoracic echocardiogram be done within the next week and follow-up with Dr. Avila at that time. Patient is discharged in stable and improved condition without complaints. Physical Exam Narrative: Patient is seen lying in bed. No acute distress. Heart is regular normal S1-S2 without murmurs clicks gallops or rubs Lungs clear to auscultation without wheezes rales or rhonchi Abdomen soft flat nondistended nontender tender normal active bowel sounds no hepatosplenomegaly extremities no clubbing cyanosis or edema Discharge Data Studies Completed and Pending Completed Studies During Hospitalization Category Date Time Status XR chest 1V portable [id number] Stat Exams 02/13/22 16:30 Completed Pending at discharge Category Date Time Status CV. echo complete* [id number] Routine Ultrasound 02/14/22 08:00 Taken Radiology Impressions Chest X-Ray 02/13/22 16:30 IMPRESSION: No acute findings. Laboratory Results WBC 7.9 10^3/uL (4.0-10.0) 02/14/22 05:00 RBC 4.72 10^6/uL (4.1-5.3) 02/14/22 05:00 Hgb 14.3 g/dL (11.7-16.6) 02/14/22 05:00 Hct 43.1 % (42.0-52.0) 02/14/22 05:00 MCV 91.3 fl (80-94) 02/14/22 05:00 MCH 30.3 pg (28.0-34.0) 02/14/22 05:00 MCHC 33.2 g/dL (30.0-36.0) 02/14/22 05:00 RDW 13.2 % (12.1-15.1) 02/14/22 05:00 Plt Count 189 10^3/cmm (130-400) 02/14/22 05:00 MPV 10.9 fL (7.4-10.4) H 02/14/22 05:00 Neut % (Auto) 65.8 % 02/14/22 05:00 Lymph % (Auto) 22.5 % 02/14/22 05:00 [place] % (Auto) 9.5 % 02/14/22 05:00 Eos % (Auto) 1.5 % 02/14/22 05:00 Baso % (Auto) 0.4 % 02/14/22 05:00 Neut # (Auto) 5.19 10^3/uL (1.8-7.7) 02/14/22 05:00 Lymph # (Auto) 1.8 10^3/uL (0.8-4.8) 02/14/22 05:00 [place] # (Auto) 0.8 10^3/uL (0.2-0.9) 02/14/22 05:00 Eos # (Auto) 0.1 10^3/uL (0.0-0.8) 02/14/22 05:00 Baso # (Auto) 0.0 10^3/uL (0.0-0.1) 02/14/22 05:00 Nucleated RBC % (auto) 0 % 02/14/22 05:00 Nucleated RBCs # 0.0 /100WBC 02/14/22 05:00 PT 12.90 SECONDS (12.1-14.9) 02/13/22 16:35 INR 0.94 (0.8-1.2) 02/13/22 16:35 APTT 25.8 SECONDS (23.9-36.7) 02/13/22 16:35 Sodium 139 mmol/L (136-145) 02/14/22 05:00 Potassium 4.1 mmol/L (3.5-5.1) 02/14/22 05:00 Chloride 105 mmol/L (98-107) 02/14/22 05:00 Carbon Dioxide 24 mmol/L (22-29) 02/14/22 05:00 Anion Gap 14.1 (5-19) 02/14/22 05:00 BUN 15 mg/dL (8-23) 02/14/22 05:00 Creatinine 0.8 mg/dL (0.7-1.2) 02/14/22 05:00 GFR Calculation Not Reportable 02/14/22 05:00 Glucose 94 mg/dL (65-115) 02/14/22 05:00 Calculated Osmolality 289 mOsm/kg (285-295) 02/14/22 05:00 Calcium 8.9 mg/dL (8.5-10.5) 02/14/22 05:00 Magnesium 2.0 mg/dL (1.7-2.3) 02/13/22 16:35 Total Bilirubin 0.4 mg/dL (0.15-1.2) 02/13/22 16:35 AST 32 U/L (0-40) 02/13/22 16:35 ALT 40 U/L (0-41) 02/13/22 16:35 Alkaline Phosphatase 84 IU/L (40-130) 02/13/22 16:35 Troponin T Baseline 12 ng/L (0-15) 02/13/22 16:35 Troponin T 120 Minute 19.97 ng/L (0-15) H 02/13/22 18:25 Delta Troponin T 7.97 ABS# (0-10) 02/13/22 18:25 Troponin T Hi Sens 6Hr 25.41 ng/L (0-15) H 02/13/22 22:02 Troponin T Hi Sens 6Hr Delta 13.41 ng/L (0-12) H* 02/13/22 22:02 NT-Pro-B Natriuret Pep 176 pg/mL (0-450) 02/13/22 16:35 Total Protein 7.2 g/dL (6.6-8.7) 02/13/22 16:35 Albumin 4.6 g/dL (3.5-5.2) 02/13/22 16:35 Globulin 2.6 g/dL (1.3-4.6) 02/13/22 16:35 Lipase 41 U/L (13-60) 02/13/22 16:35 TSH 1.74 uIU/mL (0.27-4.20) 02/13/22 16:35 Urine Color Yellow (Yellow) 02/13/22 18:23 Urine Appearance Clear (CLEAR) 02/13/22 18:23 Urine pH 5 (5-7) 02/13/22 18:23 Ur Specific [place] 1.007 (1.005-1.030) 02/13/22 18:23 Urine Protein Neg (Negative) 02/13/22 18:23 Urine Glucose (UA) Norm (Normal) 02/13/22 18:23 Urine Ketones Negative (Negative) 02/13/22 18:23 Urine Blood Neg (Negative) 02/13/22 18:23 Urine Nitrate Negative (Negative) 02/13/22 18:23 Urine Bilirubin Neg (Negative) 02/13/22 18:23 Urine Urobilinogen Neg mg/dL (Negative) 02/13/22 18:23 Ur Leukocyte Esterase Negative (Negative) 02/13/22 18:23 Vitals Last Vital Signs Temp 97.8 F 02/14/22 07:09 Pulse 67 02/14/22 07:09 Resp 21 H 02/14/22 07:09 BP 106/74 02/14/22 07:09 Pulse Ox 92 02/14/22 07:09 Discharge Plan Discharge Patient Disposition: Home Condition: Stable Prescriptions: New nitroglycerin 0.4 mg Tablet, Sublingual 0.4 mg sublingual Q5M PRN (Reason: Chest Pain) 30 Days Qty: 30 0RF metoprolol tartrate 25 mg Tablet 25 mg PO BID@0900,2100 30 Days Qty: 60 0RF Eliquis 5 mg tablet 5 mg PO BID Qty: 60 0RF Continued tramadol 50 mg tablet 50 mg PO DAILY 0RF folic acid 1 mg tablet 1 mg PO DAILY 0RF aspirin [Aspir-81] 81 mg tablet,delayed release (DR/EC) 81 mg PO DAILY 0RF trazodone 50 mg tablet 25 mg PO DAILY 0RF lisinopril 2.5 mg tablet 2.5 mg PO DAILY Qty: 90 3RF rosuvastatin 40 mg tablet 40 mg PO DAILY Qty: 90 3RF pantoprazole 40 mg tablet,delayed release (DR/EC) 40 mg PO DAILY 0RF Discontinued clopidogrel 75 mg tablet 75 mg PO DAILY Qty: 90 3RF carvedilol 3.125 mg tablet 3.125 mg PO BID 0RF Discharge Orders: Discharge Order (Routine); Ordered 02/14/22 Ordered By: Gordon Agosto Other Ambulatory Orders: CV. echo complete* [id number] (Routine) Timeframe: 1 Week Facility: [facility] - Location: Radiology Ordered By: Gordon Agosto Referrals: Phil Hernandez, [Primary Care Provider] - Discharge Diet: Cardiac Discharge Activity: Increase activity as tolerated Patient Instructions: Anticoagulation Therapy, Metoprolol (By mouth) (Lopressor, Toprol XL), Nitroglycerin (By mouth) (Nitro-Time), Apixaban (By mouth) (Eliquis), Opioid Safety Activity Restrictions/Additional Instructions: May take nitroglycerin tabs as needed for chest pain. May repeat every 5 minutes times 2 for total of 3 doses. If that doesn't relieve chest pain, proceed to ED. Discharge Attestations Time Spent in Discharge Care*: greater than 30 min Quality Metrics Clinical Quality Measures [ No reported AMI, CVA or VTE this stay] Coding Level of Care Code Acute Chg FW DC note Diagnoses Atrial fibrillation with rapid ventricular response I48.91 Chest pain R07.9 Palpitations R00.2
--- NOTE | 2022-02-14 09:22 | DCPLANNER ---
Called [facility] SEVERAL TIMES reaching only the voice mail. I faxed the order to them as I do for weekends.
[2022-02-14] MEDS: pantoprazole DR 40 mg Tablet PO (09:37)
[2022-02-14] MEDS: metoprolol tartrate 25 mg Tablet PO (09:37)
[2022-02-14] MEDS: atorvastatin 40 mg Tablet 80 MG PO (09:37)
[2022-02-14] MEDS: clopidogrel 75 mg Tablet PO (09:37)
[2022-02-14 10:12] VITALS: BP 106/74; PULSE 67; RESP 21; TEMP 36.6; O2SAT 92
--- NOTE | 2022-02-14 10:20 | PC.CHAP ---
Pastoral Care Encounter/Spiritual Assessment Type of Contact [] Declined dermatology physician assistant visit [] Patient/Family/Request visit [] Outpatient visit [] Follow-up visit [] Physician referral [] Code/Alert [x] Routine visit [] Staff referral [] Actively dying [x] Patient sleeping [] Family support [] [] Out of room [] Palliative care [] [] Receiving care in room [] Pre-surgical visit [] Trauma [] Long length of stay [] ICU visit [] Other: Relational/Emotional Strength [] Patient feels connected with others/family/visitors/staff [] Distress [] Loneliness/isolation [] Abandonment Spirituality of Patient [] Person of [place]isa [] Attends Mosque of their [place] [] Believes in Prayer [] Reads Bible or Orthodoxy materials [] There are Spiritual issues to be addressed 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 [x] Prayer [] Active listening [] Non-anxious presence [] Spiritual/emotional support [] Crisis/trauma care [] Spiritual counseling [] Bereavement support [] Provided bereavement packet [] Provided Bible/devotional materials [] Provided toy/stuffed animal, coloring book to patient or family member [] Provided Communion [] Anointing/[place] [] Salvation [x] Completed spiritual assessment [] Other: Impact on Illness or Injury [] Angry [] Fearful [] Anxious [] Often cries [] Exhaustion [] Unable to work [] Unable to attend sikhism [] Unable to walk/stand [] Unable to read [] Unable to drive [] Unable to eat/drink [] Unable to sleep [] Unable to be with family [] Patient intubated [] Other: Summary Time spent with patient
--- NOTE | 2022-02-14 11:11 | PC.NURSE ---
discharge instructions given and explained.mirella ojeda given.pt and spouse verb understanding of instructions.discharged via w/c to exit at 11:00.SPOUSE TO DRIVE PT HOME.
== END 2022-02-14 11:00 | disposition home or self-care (01) ==
LOC: ER 19:30 → CSU 19:32
PROVIDERS: Emergency Medicine; Admitting Provider Internal Medicine; Emergency Provider Emergency Medicine; PCP Family Medicine; Visit Provider Internal Medicine
DX: I48.91 Unspecified atrial fibrillation (principal); R07.9 Chest pain, unspecified; R00.2 Palpitations; I25.10 Atherosclerotic heart disease of native coronary artery without angina pectoris; Z95.1 Presence of aortocoronary bypass graft; Z95.5 Presence of coronary angioplasty implant and graft; Z79.82 Long term (current) use of aspirin
CPT/HCPCS: 36415; 71045; 80048; 80053; 81003; 83690; 83735; 83880; 84443; 84484; 85025; 85610; 85730; 93005; 93306; 96365; 96372; 96375; 96376; 99285; G0378; J1650; J3490; J7040

== ENCOUNTER → 2022-08-26 08:04 | Outpatient (BNVA) | payer MEDICARE, OTHER, SELFPAY | PROVIDERS: PCP Family Medicine; Visit Provider Family Medicine | DX: G47.33 Obstructive sleep apnea (adult) (pediatric) (principal); I10 Essential (primary) hypertension; E78.5 Hyperlipidemia, unspecified; I48.91 Unspecified atrial fibrillation; R73.9 Hyperglycemia, unspecified | CPT/HCPCS: 80053; 80061; 83036; 85025 ==

== ENCOUNTER → 2023-03-17 08:17 | Outpatient (BNVA) | payer MEDICARE, OTHER, SELFPAY | PROVIDERS: PCP Family Medicine; Visit Provider Family Medicine | DX: E78.5 Hyperlipidemia, unspecified (principal); I10 Essential (primary) hypertension; I48.91 Unspecified atrial fibrillation; M19.90 Unspecified osteoarthritis, unspecified site | CPT/HCPCS: 80053; 80061; 85025 ==

== ENCOUNTER → 2023-09-24 08:36 | Outpatient (BNVA) | payer MEDICARE, OTHER, SELFPAY | PROVIDERS: PCP Family Medicine; Visit Provider Family Medicine | DX: Z23 Encounter for immunization (principal); E78.5 Hyperlipidemia, unspecified; I10 Essential (primary) hypertension; I48.91 Unspecified atrial fibrillation; Z13.6 Encounter for screening for cardiovascular disorders; R73.9 Hyperglycemia, unspecified; R09.81 Nasal congestion | CPT/HCPCS: 80053; 80061; 83036; 85025 ==

== ENCOUNTER → 2024-03-10 08:08 | Outpatient (BNVA) | payer MEDICARE, OTHER, SELFPAY | PROVIDERS: PCP Family Medicine; Visit Provider Family Medicine | DX: I10 Essential (primary) hypertension (principal); I48.91 Unspecified atrial fibrillation; E78.5 Hyperlipidemia, unspecified; R73.9 Hyperglycemia, unspecified; Z13.6 Encounter for screening for cardiovascular disorders | CPT/HCPCS: 80053; 80061; 83036; 85025 ==

== ENCOUNTER → 2024-06-23 10:16 | Outpatient (BNVA) | payer MEDICARE, OTHER, SELFPAY | PROVIDERS: PCP Family Medicine; Visit Provider Family Medicine | DX: N41.9 Inflammatory disease of prostate, unspecified (principal) | CPT/HCPCS: 81000; 87086 ==

== ENCOUNTER → 2024-09-08 08:29 | Outpatient (BNVA) | payer MEDICARE, OTHER, SELFPAY | PROVIDERS: PCP Family Medicine; Visit Provider Family Medicine | DX: I10 Essential (primary) hypertension (principal); E78.5 Hyperlipidemia, unspecified; I48.91 Unspecified atrial fibrillation; R73.9 Hyperglycemia, unspecified | CPT/HCPCS: 80053; 80061 ==

== ENCOUNTER → 2025-02-23 08:17 | Outpatient (BNVA) | payer MEDICARE, OTHER, SELFPAY | PROVIDERS: PCP Family Medicine; Visit Provider Family Medicine | DX: I10 Essential (primary) hypertension (principal); I48.91 Unspecified atrial fibrillation; E78.5 Hyperlipidemia, unspecified; R73.9 Hyperglycemia, unspecified; M19.90 Unspecified osteoarthritis, unspecified site | CPT/HCPCS: 80053; 80061; 83036; 85025 ==

== ENCOUNTER → 2025-05-08 15:33 | Outpatient (BNVA) | payer MEDICARE, OTHER, SELFPAY | PROVIDERS: PCP Family Medicine; Visit Provider Family Medicine | DX: I49.8 Other specified cardiac arrhythmias (principal); E03.9 Hypothyroidism, unspecified | CPT/HCPCS: 80053; 83735; 84443 ==

== ENCOUNTER → 2025-05-24 08:28 | Outpatient (BNVA) | payer MEDICARE, OTHER, SELFPAY | PROVIDERS: PCP Family Medicine; Visit Provider Family Medicine | DX: I49.8 Other specified cardiac arrhythmias (principal); I48.91 Unspecified atrial fibrillation; I10 Essential (primary) hypertension | CPT/HCPCS: 84443 ==

== ENCOUNTER → 2025-08-15 14:02 | Outpatient (BNVA) | payer MEDICARE, OTHER, SELFPAY | PROVIDERS: PCP Family Medicine; Visit Provider Family Medicine | DX: I10 Essential (primary) hypertension (principal); I48.91 Unspecified atrial fibrillation; E78.5 Hyperlipidemia, unspecified; R73.9 Hyperglycemia, unspecified; M19.90 Unspecified osteoarthritis, unspecified site; E03.9 Hypothyroidism, unspecified | CPT/HCPCS: 80053; 80061; 84443; 85025 ==